=== PATIENT | female | born 1990 | race African-American/Black ===

== ENCOUNTER 2017-07-15 13:25 | Emergency (ER) | payer SELFPAY | END 2017-07-15 14:56 | disposition home or self-care (01) | LOC: ER 13:25 | DX: G89.29 Other chronic pain (principal); M25.572 Pain in left ankle and joints of left foot; F12.10 Cannabis abuse, uncomplicated; Z88.1 Allergy status to other antibiotic agents | CPT/HCPCS: 73610; 99284 ==